=== PATIENT | male | born 1975 | race Hispanic/Latino ===

== ENCOUNTER 2020-10-17 20:24 | Emergency (ER) | payer SELFPAY ==
--- NOTE | 2020-10-17 21:30 | RAD REPORT ---
EXAM DESCRIPTION: RAD - Ankle Right 3 View - 10/17/2020 9:17 pm CLINICAL HISTORY: PAIN COMPARISON: No comparisonsNo comparisons FINDINGS: Fracture dislocation is noted involving the ankle joint. Moderately angulated lateral mall eolar fracture. Mildly comminuted medial malleolus fracture with tibiotalar dislocation. A large post erior malleolar fracture fragment also seen.
[2020-10-17] MEDS ORDERED: ONDANSETRON 4 MG/2 ML VIAL ONE (22:10)
[2020-10-17] MEDS ORDERED: FENTANYL CITR 100 MCG/2 ML ONE (22:10)
[2020-10-17] MEDS ORDERED: propofoL 200 MG/20 ML VIAL IV ONE (22:10)
[2020-10-17] MEDS ORDERED: NA CHLORIDE 0.9% 1,000 ML ONE (22:29)
--- NOTE | 2020-10-17 23:04 | EDPHYS ---
Physician Documentation [facility] Name: Doenll Uriostegui Age: 45 yrs Sex: Male : 1975 Arrival Date: 10/17/2020 Time: 20:28 Bed 4 Private MD: ED Physician Ba Espinal HPI: 10/18 07:08 This 45 yrs old Male presents to ER via Wheelchair with complaints of Foot tw4 Injury. 07:08 The patient presents with an injury. tw4 07:09 The patient presents with decreased range of motion, an injury. The complaints affect tw4 the right ankle. Onset: The symptoms/episode began/occurred just prior to arrival. Context: The problem was sustained at home, resulted from a mis-step by the patient, The mechanism of injury involved inversion of the affected ankle. Associated signs and symptoms: The patient has no apparent associated signs or symptoms. Modifying factors: The symptoms are alleviated by nothing, the symptoms are aggravated by nothing. The patient has not experienced similar symptoms in the past. Historical: - Allergies: 10/17 20:50 No Known Allergies; rr5 - Home Meds: 20:50 BP medication [Active]; rr5 - PMHx: 20:50 Hypertension; rr5 - PSHx: 20:50 None; rr5 - Immunization history:: Adult Immunizations up to date. - Social history:: Smoking status: Patient reports the use of cigarette tobacco products, smokes one-half pack cigarettes per day, Patient uses alcohol, weekly. ROS: 10/18 07:09 Constitutional: Negative for fever, chills, and weight loss, Eyes: Negative for injury, tw4 pain, redness, and discharge, Cardiovascular: Negative for chest pain, palpitations, and edema, Respiratory: Negative for shortness of breath, cough, wheezing, and pleuritic chest pain, Abdomen/GI: Negative for abdominal pain, nausea, vomiting, diarrhea, and constipation, Back: Negative for injury and pain, Skin: Negative for injury, rash, and discoloration, Neuro: Negative for headache, weakness, numbness, tingling, and seizure. 07:09 MS/extremity: Positive for injury or acute deformity, decreased range of motion, tw4 deformity, swelling, tenderness. Exam: 07:09 Constitutional: This is a well developed, well nourished patient who is awake, alert, tw4 and in no acute distress. Head/Face: Normocephalic, atraumatic. Chest/axilla: Normal chest wall appearance and motion. Nontender with no deformity. No lesions are appreciated. Cardiovascular: Regular rate and rhythm with a normal S1 and S2. No gallops, murmurs, or rubs. Normal PMI, no JVD. No pulse deficits. Respiratory: Lungs have equal breath sounds bilaterally, clear to auscultation and percussion. No rales, rhonchi or wheezes noted. No increased work of breathing, no retractions or nasal flaring. Abdomen/GI: Soft, non-tender, with normal bowel sounds. No distension or tympany. No guarding or rebound. No evidence of tenderness throughout. 07:09 Musculoskeletal/extremity: Extremities: noted in the right leg: decreased ROM, deformity, swelling, tenderness. Vital Signs: 10/17 20:48 BP 118 / 70; Pulse 100; Resp 16; Temp 98.5; Pulse Ox 100% ; Weight 81.65 kg; Height 5 rr5 ft. 6 in. (167.64 cm); Pain 7/10; 21:40 BP 128 / 99; Pulse 97; Resp 16; Pulse Ox 100% on R/A; jb4 22:30 BP 141 / 104; Pulse 109; Resp 16; Pulse Ox 100% on R/A; jb4 22:55 BP 117 / 94; Pulse 99; Resp 16; Pulse Ox 99% on R/A; jb4 20:48 Body Mass Index 29.05 (81.65 kg, 167.64 cm) rr5 Davin Coma Score: 21:40 Eye Response: spontaneous(4). Verbal Response: oriented(5). Motor Response: obeys jb4 commands(6). Total: 15. 22:30 Eye Response: spontaneous(4). Verbal Response: oriented(5). Motor Response: obeys jb4 commands(6). Total: 15. Trauma Score (Adult): 21:40 Eye Response: spontaneous(1); Verbal Response: oriented(1); Motor Response: obeys jb4 commands(2); Systolic BP: > 89 mm Hg(4); Respiratory Rate: 10 to 29 per min(4); Davin Score: 15; Trauma Score: 12 22:30 Eye Response: spontaneous(1); Verbal Response: oriented(1); Motor Response: obeys jb4 commands(2); Systolic BP: > 89 mm Hg(4); Respiratory Rate: 10 to 29 per min(4); Shashank Score: 15; Trauma Score: 12 Procedures: 10/18 07:09 Splinting: Splint applied to lateral aspect of right calf, right ankle and lateral tw4 aspect of right foot using Orthoglass splint, applied by myself. post reduction film - reveals improved alignment, Examined by me, post splint application: neurovascular intact, 2+ distal pulses palpable, brisk capillary refill noted, Patient tolerated well. Reduction: of the right ankle, using traction, manipulation, Immobilized with OCL splint, Patient tolerated well. Post reduction film - reveals normal alignment. Moderate sedation: Monitoring during procedure: teletypesetter monitor, continuous pulse oximetry, Medications employed: propfol. MDM: 10/17 21:19 Patient medically screened. tw4 10/18 07:12 Data reviewed: vital signs, nurses notes. Data interpreted: Pulse oximetry: tw4 Interpretation: normal. Counseling: I had a detailed discussion with the patient and/or guardian regarding: the historical points, exam findings, and any diagnostic results supporting the discharge/admit diagnosis. Medication response: Response to treatment: and as a result, I will discharge patient. Special discussion: I discussed with the patient/guardian in detail that at this point there is no indication for admission to the hospital. It is understood, however, that if the symptoms persist or worsen the patient needs to return immediately for re-evaluation. 10/17 20:52 Order name: Ankle Right 3 View XRAY; Complete Time: 21:48 rr5 10/17 22:20 Order name: Ankle Right 3 View XRAY tw4 10/17 23:50 Order name: Crutches; Complete Time: 23:50 jb4 Administered Medications: 10/17 21:38 Drug: Zofran (Ondansetron) 4 mg Route: IVP; Site: right antecubital; jb4 23:50 Follow up: Response: No adverse reaction jb4 21:40 Drug: fentaNYL (PF) 25 mcg Route: IVP; Site: right antecubital; jb4 23:49 Follow up: Response: No adverse reaction; Marked relief of symptoms; Pain is decreased; jb4 RASS: Alert and Calm (0) 22:15 Drug: Propofol 160 mg Route: IVP; Site: right antecubital; jb4 23:49 Follow up: Response: No adverse reaction jb4 22:44 Not Given (Other Intervention Used): fentaNYL (PF) 50 mcg IVP once; RASS on ADMIN: jb4 Combtv4, Very Agttd3, Agttd2, Rstlss1, AlertClm0, Drwsy-1, Lt Sdtn-2, Mod Sdtn-3, Dp Sdtn-4, UnArsble-5 22:45 Not Given (Other Intervention Used): Propofol 100 mg IVP once jb4 Disposition: 10/17/20 23:03 Discharged to Home. Impression: Bimalleolar fracture of lower leg, Dislocation of right ankle joint. - Condition is Stable. - Discharge Instructions: Ankle Fracture, [id number], Closed Reduction for Ankle Fracture or Dislocation. - Prescriptions for Ibuprofen 800 mg Oral Tablet - take 1 tablet by ORAL route every 8 hours As needed take with food; 30 tablet. Tylenol- Codeine #3 300-30 mg Oral Tablet - take 2 tablet by ORAL route every 4-6 hours As needed; 30 tablet. - Work release form, Medication Reconciliation Form, Thank You Letter, Antibiotic Education, Prescription Opioid Use form. - Follow up: Private Physician; When: Upon discharge from the Emergency Department; Reason: Recheck today's complaints, Continuance of care, Re-evaluation by your physician. Follow up: Karl Capone MD; When: Upon discharge from the Emergency Department; Reason: Recheck today's complaints, Continuance of care, Re-evaluation by your physician. Follow up: Ash Mojica MD; When: Upon discharge from the Emergency Department; Reason: Recheck today's complaints, Continuance of care, Re-evaluation by your physician. Follow up: Les Mullins MD; When: Upon discharge from the Emergency Department; Reason: Recheck today's complaints, Continuance of care, Re-evaluation by your physician. - Problem is new. - Symptoms have improved. Signatures: Dispatcher [employer] EDMS Van Hernandez RN RN jb4 Ba Espinal MD MD tw4 Franc Haynes RN RN rr5 Corrections: (The following items were deleted from the chart) 23:05 23:03 10/17/2020 23:03 Discharged to Home. Impression: Bimalleolar fracture of lower tw4 leg; Dislocation of right ankle joint. Condition is Stable. Forms are Medication Reconciliation Form, Thank You Letter, Antibiotic Education, Prescription Opioid Use. Follow up: Private Physician; When: Upon discharge from the Emergency Department; Reason: Recheck today's complaints, Continuance of care, Re-evaluation by your physician. Problem is new. Symptoms have improved. tw4 23:50 23:05 10/17/2020 23:03 Discharged to Home. Impression: Bimalleolar fracture of lower jb4 leg; Dislocation of right ankle joint. Condition is Stable. Discharge Instructions: Ankle Fracture, [id number], Closed Reduction for Ankle Fracture or Dislocation. Prescriptions for Ibuprofen 800 mg Oral Tablet - take 1 tablet by ORAL route every 8 hours As needed take with food; 30 tablet, Tylenol-Codeine #3 300-30 mg Oral Tablet - take 2 tablet by ORAL route every 4-6 hours As needed; 30 tablet. and Forms are Medication Reconciliation Form, Thank You Letter, Antibiotic Education, Prescription Opioid Use. Follow up: Private Physician; When: Upon discharge from the Emergency Department; Reason: Recheck today's complaints, Continuance of care, Re-evaluation by your physician. Follow up: Karl Capone; When: Upon discharge from the Emergency Department; Reason: Recheck today's complaints, Continuance of care, Re-evaluation by your physician. Follow up: Ash Mojica; When: Upon discharge from the Emergency Department; Reason: Recheck today's complaints, Continuance of care, Re-evaluation by your physician. Follow up: Dr. Les Mullins; When: Upon discharge from the Emergency Department; Reason: Recheck today's complaints, Continuance of care, Re-evaluation by your physician. Problem is new. Symptoms have improved. tw4 10/18 07:10 07:09 MS/extremity: Positive for erythema, swelling, tenderness, tw4 tw4
--- NOTE | 2020-10-17 23:04 | ER ---
Nurse's Notes [facility] Name: Donell Uriostegui Age: 45 yrs Sex: Male : 1975 Arrival Date: 10/17/2020 Time: 20:28 Bed 4 Private MD: Diagnosis: Bimalleolar fracture of lower leg;Dislocation of right ankle joint Presentation: 10/17 20:48 Chief complaint: Patient states: we were playing around while I am wearing my loose rr5 boot then suddenly my right foot twisted. Coronavirus screen: Client denies travel out of the [place] in the last 14 days. At this time, the client does not indicate any symptoms associated with coronavirus-19. Ebola Screen: Patient negative for fever greater than or equal to 101.5 degrees Fahrenheit, and additional compatible Ebola Virus Disease symptoms Patient denies exposure to infectious person. Patient denies travel to an Ebola-affected area in the 21 days before illness onset. Initial Sepsis Screen: Does the patient meet any 2 criteria? No. Patient's initial sepsis screen is negative. Does the patient have a suspected source of infection? No. Patient's initial sepsis screen is negative. Risk Assessment: Do you want to hurt yourself or someone else? Patient reports no desire to harm self or others. Onset of symptoms was October 17, 2020. 20:48 Method Of Arrival: Wheelchair rr5 20:48 Acuity: SUNDAR 3 rr5 Triage Assessment: 20:50 General: Appears in no apparent distress. uncomfortable, Behavior is calm, cooperative, rr5 appropriate for age. Pain: Complains of pain in right ankle. Musculoskeletal: Bony deformity noted of right foot ankle. Injury Description: Deformity sustained to right foot. 20:50 Cardiovascular: Pulses are palpable in right dorsalis pedis artery. rr5 Historical: - Allergies: 20:50 No Known Allergies; rr5 - Home Meds: 20:50 BP medication [Active]; rr5 - PMHx: 20:50 Hypertension; rr5 - PSHx: 20:50 None; rr5 - Immunization history:: Adult Immunizations up to date. - Social history:: Smoking status: Patient reports the use of cigarette tobacco products, smokes one-half pack cigarettes per day, Patient uses alcohol, weekly. Screenin:13 Abuse screen: Denies threats or abuse. Nutritional screening: No deficits noted. jb4 Tuberculosis screening: No symptoms or risk factors identified. Fall risk At risk due to injury, prior history of falls. Primary Survey: 21:13 NO uncontrolled hemorrhage observed. A: The patient is alert. Airway: patent, No jb4 supplemental oxygen in use on arrival. Oral cavity: clear, gag reflex present. Breathing/Chest: Respiratory pattern: regular, Respiratory effort: spontaneous, unlabored, Chest inspection: symmetrical rise and fall of the chest. Circulation: Pulses: palpable right dorsalis pedis artery. Skin color: pink, Skin temperature: warm, dry. Disability Alert. Exposure/Environment: All clothing and personal items were removed. Forensic evidence collection is not deemed to be indicated at this time. Items placed in patient belonging bag. 22:00 Reassessment Airway Airway Patent Oxygen No O2 Breathing/Chest Respiratory pattern jb4 Regular Respiratory effort Spontaneous Unlabored Chest inspection Symmetrical Circulation Pulses Palpable Color Sullivan Temperature Warm Dry Disability Alert. Assessment: 21:13 General: Appears in no apparent distress. uncomfortable, Behavior is calm, cooperative, jb4 appropriate for age. Pain: Complains of pain in right foot Pain does not radiate. Pain currently is 7 out of 10 on a pain scale. Neuro: Level of Consciousness is awake, alert, obeys commands, Oriented to person, place, time, situation. Cardiovascular: Patient's skin is warm and dry. Respiratory: Airway is patent Respiratory effort is even, unlabored, Respiratory pattern is regular, symmetrical. GI: No signs and/or symptoms were reported involving the gastrointestinal system. : No signs and/or symptoms were reported regarding the genitourinary system. EENT: No signs and/or symptoms were reported regarding the EENT system. Derm: Skin is intact, Skin is pink, warm \T\ dry. Musculoskeletal: Circulation, motion, and sensation intact. Range of motion: limited in right ankle Bony deformity noted of right ankle. 22:00 Reassessment: Patient appears in no apparent distress at this time. Patient and/or jb4 family updated on plan of care and expected duration. Pain level reassessed. Patient is alert, oriented x 3, equal unlabored respirations, skin warm/dry/pink. 22:10 Reassessment: See conscious sedation flow sheet. jb4 23:00 Reassessment: Patient appears in no apparent distress at this time. Patient and/or jb4 family updated on plan of care and expected duration. Pain level reassessed. Patient is alert, oriented x 3, equal unlabored respirations, skin warm/dry/pink. Vital Signs: 20:48 BP 118 / 70; Pulse 100; Resp 16; Temp 98.5; Pulse Ox 100% ; Weight 81.65 kg; Height 5 rr5 ft. 6 in. (167.64 cm); Pain 7/10; 21:40 BP 128 / 99; Pulse 97; Resp 16; Pulse Ox 100% on R/A; jb4 22:30 BP 141 / 104; Pulse 109; Resp 16; Pulse Ox 100% on R/A; jb4 22:55 BP 117 / 94; Pulse 99; Resp 16; Pulse Ox 99% on R/A; jb4 20:48 Body Mass Index 29.05 (81.65 kg, 167.64 cm) rr5 Veblen Coma Score: 21:40 Eye Response: spontaneous(4). Verbal Response: oriented(5). Motor Response: obeys jb4 commands(6). Total: 15. 22:30 Eye Response: spontaneous(4). Verbal Response: oriented(5). Motor Response: obeys jb4 commands(6). Total: 15. Trauma Score (Adult): 21:40 Eye Response: spontaneous(1); Verbal Response: oriented(1); Motor Response: obeys jb4 commands(2); Systolic BP: > 89 mm Hg(4); Respiratory Rate: 10 to 29 per min(4); Shashank Score: 15; Trauma Score: 12 22:30 Eye Response: spontaneous(1); Verbal Response: oriented(1); Motor Response: obeys jb4 commands(2); Systolic BP: > 89 mm Hg(4); Respiratory Rate: 10 to 29 per min(4); Shashank Score: 15; Trauma Score: 12 ED Course: 20:28 Patient arrived in ED. es 20:50 Triage completed. rr5 20:51 Arm band placed on right wrist. rr5 21:13 Patient has correct armband on for positive identification. Bed in low position. Call jb4 light in reach. Side rails up X 1. 21:13 Patient maintains SpO2 saturation greater than 95% on room air. Thermoregulation: warm jb4 blanket given to patient. 21:16 Ankle Right 3 View XRAY In Process Unspecified. EDMS 21:18 Van Hernandez, RN is Primary Nurse. jb4 21:19 Ba Espinal MD is Attending Physician. tw4 22:21 Orthoglass splint: Posterior short lleg splint applied on stirrup splint applied on oe right leg. 22:30 Ankle Right 3 View XRAY In Process Unspecified. EDMS 23:04 Karl Capone MD is Referral Physician. tw4 23:04 Ash Mojica MD is Referral Physician. tw4 23:05 Les Mullins MD is Referral Physician. tw4 23:48 No provider procedures requiring assistance completed. IV discontinued, intact, jb4 bleeding controlled, No redness/swelling at site. Pressure dressing applied. Administered Medications: 21:38 Drug: Zofran (Ondansetron) 4 mg Route: IVP; Site: right antecubital; jb4 23:50 Follow up: Response: No adverse reaction jb4 21:40 Drug: fentaNYL (PF) 25 mcg Route: IVP; Site: right antecubital; jb4 23:49 Follow up: Response: No adverse reaction; Marked relief of symptoms; Pain is decreased; jb4 RASS: Alert and Calm (0) 22:15 Drug: Propofol 160 mg Route: IVP; Site: right antecubital; jb4 23:49 Follow up: Response: No adverse reaction jb4 22:44 Not Given (Other Intervention Used): fentaNYL (PF) 50 mcg IVP once; RASS on ADMIN: jb4 Combtv4, Very Agttd3, Agttd2, Rstlss1, AlertClm0, Drwsy-1, Lt Sdtn-2, Mod Sdtn-3, Dp Sdtn-4, UnArsble-5 22:45 Not Given (Other Intervention Used): Propofol 100 mg IVP once jb4 Output: 23:09 Urine: 900ml (Voided); Total: 900ml. jb4 Outcome: 23:03 Discharge ordered by . tw4 23:48 Discharged to home via wheelchair, with crutches, with friend. jb4 23:48 Condition: stable 23:48 Discharge instructions given to patient, Instructed on discharge instructions, follow up and referral plans. medication usage, Demonstrated understanding of instructions, follow-up care, medications, Prescriptions given X 2. 23:49 Patient's length of stay in the Emergency Department was greater than 2 hours. PT dc'ed jb4 homePatient's length of stay extended due to 23:50 Patient left the ED. jb4 Signatures: Dispatcher [employer] EDRajni Ryan James, RN RN jb4 Ron Nunes Terrence, MD MD tw4 Franc Haynes RN RN rr5 Corrections: (The following items were deleted from the chart) 20:58 20:50 Musculoskeletal: Bony deformity noted of right foot ankle rr5 rr5 22:45 21:38 Propofol 100 mg IVP in right antecubital jb4 jb4
[2020-10-17 23:57] VITALS: TEMP 98.5
[2020-10-18 00:26] VITALS: BP 117/94; O2SAT 99
--- NOTE | 2020-10-18 09:59 | RAD REPORT ---
EXAM DESCRIPTION: RAD - Ankle Right 3 View - 10/17/2020 10:30 pm CLINICAL HISTORY: Ankle fracture FINDINGS: Splint immobilizes the tibial and fibular fracture. Better alignment of the tibiotalar joint
== END 2020-10-17 23:50 | disposition home or self-care (01) ==
LOC: ER 20:24
PROC: 0QSJXZZ Reposition Right Fibula, External Approach (ICD-10-PCS; principal; 2020-10-17)
PROC: 0QSGXZZ Reposition Right Tibia, External Approach (ICD-10-PCS; 2020-10-17)
DX: S82.841A Displaced bimalleolar fracture of right lower leg, initial encounter for closed fracture (principal); X58.XXXA Exposure to other specified factors, initial encounter; Y93.01 Activity, walking, marching and hiking; Y92.009 Unspecified place in unspecified non-institutional (private) residence as the place of occurrence of the external cause; I10 Essential (primary) hypertension; F17.210 Nicotine dependence, cigarettes, uncomplicated
CPT/HCPCS: 96374; 96375; 99285; J2405; J2704; J3010; J7030